=== PATIENT | female | born 1965 | race Caucasian/White ===

== ENCOUNTER 2023-04-17 11:48 | Emergency (ER) | payer MEDICARE, MEDICAID ==
[2023-04-17] MEDS ORDERED: Acetaminophen/HYDROcodone 325-10 MG Tab PO ONE (23:06)
== END 2023-04-17 23:34 | disposition home or self-care (01) ==
LOC: JP.ED 11:48
DX: S82.032A Displaced transverse fracture of left patella, initial encounter for closed fracture (principal); Z79.82 Long term (current) use of aspirin; Z79.899 Other long term (current) drug therapy; W06.XXXA Fall from bed, initial encounter
CPT/HCPCS: 73560; 99284; A9270